=== PATIENT | female | born 1950 | race Caucasian/White ===

== ENCOUNTER → 2017-08-03 | Day surgery (SDC) | payer MEDICARE, OTHER ==
[~2017-08-03] VITALS: Ht 149.9 cm; Wt 70.0 kg
[~2017-08-03] MED LIST: ALBU6.7H INH; ATELTAB PO; BACITRACIN TOP OINT 15 GM TUBE ONE; BUPIVACAINE/EPINEPHRINE 0.25% PF 30 ML VIAL ONE; CHLORHEXIDINE GLUCONATE 2 % 1 PACK (2 CLOTHS) TOPICAL PRN; CIPROFLOXACIN/DEXT 400 MG/200 ML IV PRN; CLOTCRE TOPICAL; COLE625 PO; DIAZ10TA PO; DULO1CAP3 PO; EPIN1INJ24 IM; FAMOTIDINE 20 MG/2 ML VIAL ONE; FLUT50SP EACH NARE; HYDR2.5%T RECTAL; IPRAAER INH; IRBE300T11 PO; LACTATED RINGER'S 1000 ML IV PRN; LEVO50TA4 PO; LIDOCAINE 1%/EPINEPHrine 1:100,000 SOLN 20 ML VIAL ONE; LIDOCAINE 2%/EPINEPHrine PF 1:200,000 20ML SDV ONE; MIDAZOLAM HCL 2 MG/2 ML VIAL ONE; MONT10TA4 PO; NEBI20 PO; NEXI40CA PO; POVIDONE IODINE 5% (ANTISEPSIS KIT) 4 APPLICATIONS EACH NARE PRN; SODIUM CHLORID 0.9% 500 ML IV PRN; TRIAM.1%T TOPICAL; VITA100018 PO
[2017-08-03 09:35] VITALS: PULSE 75
[2017-08-03 10:05] VITALS: TEMP 98.3
[2017-08-03 11:00] VITALS: BP 139/85; PULSE 65; RESP 15; O2SAT 97
--- NOTE | 2017-08-03 20:46 | EKG ---
Date Performed: 08/03/2017 Time Performed: 07:56:52 PTAGE: 66 years EKG: Sinus rhythm NONSPECIFIC T-WAVE ABNORMALITY BORDERLINE ECG NO PREVIOUS TRACING DOCTOR: iBpin Tyson Interpretating Date/Time 08/03/2017 20:45:20
--- NOTE | 2017-08-05 18:24 | PD.OP ---
Operative Report Date of Surgery: Aug 03, 2017 Preoperative Diagnosis: (1) Mass of right wrist Postoperative Diagnosis: (1) Mass of right wrist Procedure: Excision of right volar wrist mass (43999) Anesthesia: General Surgeon: Reddy Eden Svp Group Director(s): . Operation and Findings: 66-year-old female who presented to clinic with a right volar wrist mass consistent with a ganglion, requesting removal. Risks benefits and alternative treatments discussed. All questions were answered and the patient expressed understanding. Patient elected to assume the risks of excision of the above mass. Informed consent was obtained. The surgical site was marked in the preoperative holding bay. Antibiotics were given on-call to the operating room. The patient was taken to the operating room and all pressure points were padded. A surgical timeout was performed. After the smooth induction of general anesthesia the surgical site was instilled with quarter percent Marcaine with epinephrine. The surgical site was prepped and draped in the usual sterile fashion. The upper extremity was exsanguinated using an Esmarch and an appropriately padded tourniquet was inflated to 250 mmHg. The patient had a previous attempt at excision by her primary care, resulting in a transverse healed incision. This was incorporated into modified Doug incisions proximally and distally. After incising the skin , blunt dissection was carried down to the mass which was appreciated at the volar proximal wrist. The radial artery was appreciated and kept free from injury. After meticulous separation of the mass from the radial artery, a stalk was followed deeply to the joint capsule. This was excised along with the mass en bloc. This was sent for permanent pathology. The tourniquet was released at 37 minutes. All digits pinked up nicely. There was no pulsatile bleeding. Hemostasis was ensured. The wound was closed with deep dermal 3-0 Vicryls followed by interrupted 4-0 nylon in a horizontal mattress fashion. The surgical site was cleaned. The wound was dressed with mupirocin ointment, Xeroform gauze, 4 x 4 gauze fluffs, a Alexys wrap, and a Coban. The patient was awoken from anesthesia and arrived stable and doing well to the PACU. All needle sponge and instrument counts were correct 2. Reddy Eden MD August 05, 2017 18:24
== END | disposition home or self-care (01) ==
LOC: PHSDC 06:02
PROVIDERS: ATTEND Student in an Organized Health Care Education/Training Program
DX: M67.431 Ganglion, right wrist (principal); I10 Essential (primary) hypertension; J44.9 Chronic obstructive pulmonary disease, unspecified
CPT/HCPCS: 01810; 25111; 88304; 93005; J0744; J2250; J3010; J7120